=== PATIENT | male | born 1990 | race Caucasian/White ===

== ENCOUNTER 2017-05-29 06:31 | Emergency (ER) | payer OTHER ==
[2017-05-29 06:44] VITALS: BP 117/68
[2017-05-29 07:01] LABS: Hematocrit 39.3 % (35.5-45.6); Hemoglobin 13.5 gm/dl (11.8-15.2); Mean Corpuscular HGB Conc 34 % (32-34); Mean Corpuscular Hemoglobin 30 pg (28-32); Mean Corpuscular Volume 87 fl (84-94); Platelet Count 238 K/mm3 (140-440); Red Blood Count 4.51 M/mm3 (3.65-5.03); Red Cell Distribution Width 13.7 % (13.2-15.2); White Blood Count 6.2 K/mm3 (4.5-11.0)
[2017-05-29 07:11] LABS: Anion Gap 18 mmol/L; Blood Urea Nitrogen 12 mg/dL (9-20); Calcium 9.1 mg/dL (8.4-10.2); Carbon Dioxide 27 mmol/L (22-30); Glucose 90 mg/dL (75-100); Sodium 142 mmol/L (137-145)
[2017-05-29 07:25] LABS: Bilirubin,Urine NEG (Negative); Blood,Urine NEG (Negative); Ketones,Urine NEG (Negative); Leukocyte Esterase,Urine NEG (Negative); Mucus,Urine FEW /HPF; Nitrite,Urine NEG (Negative); Protein,Urine <15 mg/dL mg/dL (Negative); Urobilinogen,Urine < 2.0 mg/dL (<2.0)
[2017-05-29 07:41] LABS: Basophils % (Manual) 0 % (0.0-1.8); Blastocytes % (Manual) 0 %
[2017-05-29 07:42] LABS: Anisocytosis Few; Diff Status Complete; Hypersegmented Neutrophils Rare; Large Platelets Rare
--- NOTE | 2017-05-29 08:29 | Emergency Department Report ---
ED Male HPI - General Chief complaint: Urogenital-Male Stated complaint: ANAL BUMP/PENILE BURNING SENSATION Time Seen by Provider: 05/29/17 08:16 Source: patient Mode of arrival: Ambulatory Limitations: No Limitations - History of Present Illness Initial comments: Patient is a 27-year-old male presents to ED complaining of burning sensation with urination past week. Patient states symptoms started last Friday somewhat resolved but wanted to have it looked at. Patient denies any penile discharge, lesions, recent intercourse. Patient has assisted days ago he noticed a mass by his rectum. Patient states it lasts days become a bit painful to touch. He states bowel movements are regular. He denies any fever/chills/nausea/ vomiting or any other problems. Quality: burning Consistency: intermittent Worsens with: urination denies: discharge, swelling, rash, blood in urine, fever, nausea/vomiting, incontinence - Related Data Previous Rx's Medication Instructions Recorded Last Taken Type Docusate Sodium [Colace] 100 mg PO BID #30 capsule 05/29/17 Unknown Rx Allergies Allergy/AdvReac Type Severity Reaction Status Date / Time No Known Allergies Allergy Verified 05/29/17 06:39 ED Review of Systems ROS: Stated complaint: ANAL BUMP/PENILE BURNING SENSATION Other details as noted in HPI Constitutional: denies: chills, fever Eyes: denies: eye pain, eye discharge, vision change ENT: denies: ear pain, throat pain Respiratory: denies: cough, shortness of breath, wheezing Cardiovascular: denies: chest pain, palpitations Endocrine: no symptoms reported Gastrointestinal: denies: abdominal pain, nausea, diarrhea Genitourinary: dysuria. denies: urgency, frequency, hematuria, discharge Musculoskeletal: denies: back pain, joint swelling, arthralgia Skin: denies: rash, lesions Neurological: denies: headache, weakness, paresthesias Psychiatric: denies: anxiety, depression Hematological/Lymphatic: denies: easy bleeding, easy bruising ED Past Medical Hx - Past Medical History Previous Medical History?: No - Surgical History Past Surgical History?: Yes Additional Surgical History: Eyes OD x 1 OS x 4 - Social History Smoking Status: Never Smoker Substance Use Type: Alcohol - Medications Home Medications: Home Medications Medication Instructions Recorded Confirmed Last Taken Type Docusate Sodium [Colace] 100 mg PO BID #30 capsule 05/29/17 Unknown Rx ED Physical Exam - General Limitations: No Limitations General appearance: alert, in no apparent distress - Head Head exam: Present: atraumatic, normocephalic - Eye Eye exam: Present: normal appearance - ENT ENT exam: Present: mucous membranes moist - Neck Neck exam: Present: normal inspection, full ROM. Absent: meningismus - Respiratory Respiratory exam: Present: normal lung sounds bilaterally. Absent: respiratory distress, wheezes, rhonchi - Cardiovascular Cardiovascular Exam: Present: regular rate, normal rhythm. Absent: systolic murmur, diastolic murmur, rubs, gallop - GI/Abdominal GI/Abdominal exam: Present: soft, normal bowel sounds - Rectal Rectal exam: Present: deferred, normal inspection, normal rectal tone, hemorrhoids (one leftsided soft,non bleeding). Absent: bloody stool, mass - exam: Present: normal inspection, circumcision. Absent: testicular tenderness, urethral discharge, scrotal swelling External exam: Present: normal external exam. Absent: erythema, swelling, lesions, lacerations, bleeding - Extremities Exam Extremities exam: Present: normal inspection, full ROM - Back Exam Back exam: Present: normal inspection - Neurological Exam Neurological exam: Present: alert, oriented X3 - Psychiatric Psychiatric exam: Present: normal affect, normal mood - Skin Skin exam: Present: warm, dry, intact, normal color. Absent: rash ED Course Vital Signs 05/29/17 06:32 Temperature 97.8 F Pulse Rate 55 L Respiratory 18 Rate Blood Pressure 117/68 [Right] O2 Sat by Pulse 100 Oximetry ED Medical Decision Making - Lab Data Result diagrams: 05/29/17 06:42 05/29/17 06:42 - Medical Decision Making 27-year-old male presents with uncomplicated external hemorrhoid ED course: ABC, BMP, urinalysis is obtained. All results are normal Discussed this findings with the patient. Discussed patient to increase fluids and can add drinking cranberry juice. Discussed the patient to keep appointment with his primary care physician tomorrow for follow-up visit. Vital signs normal AND within normal limits patient is in no acute distress Critical care attestation.: If time is entered above; I have spent that time in minutes in the direct care of this critically ill patient, excluding procedure time. ED Disposition Clinical Impression: External hemorrhoids without complication Disposition: DC-01 TO HOME OR SELFCARE Is pt being admited?: No Does the pt Need Aspirin: No Condition: Stable Instructions: Hemorrhoids (ED), Urinary Tract Infection in Men (ED) Additional Instructions: Keep the appointment which her primary care physician tomorrow Follow instructions as given. Prescriptions: Docusate Sodium [Colace] 100 mg PO BID #30 capsule Referrals: PRIMARY CARE, [Primary Care Provider] - 3-5 Days Forms: Work/School Release Form(ED) Time of Disposition: 09:07
== END 2017-05-29 09:25 | disposition home or self-care (01) ==
LOC: ED 06:31
DX: K64.4 Residual hemorrhoidal skin tags (principal)
CPT/HCPCS: 36415; 80048; 81001; 85007; 85025; 99283

== ENCOUNTER 2017-06-29 06:25 | Emergency (ER) | payer OTHER ==
--- NOTE | 2017-06-29 08:44 | XRay Report ---
FINAL REPORT EXAM: XR ANKLE 3+V RT HISTORY: fall,injury,pain COMPARISONS: None. FINDINGS: Three nonweightbearing views right ankle Mild soft tissue swelling about the ankle. No bone lesion, periosteal reaction, or fracture. No deformity or gross malalignment. IMPRESSION: Mild soft tissue swelling about the right ankle without fracture.
[2017-06-29] MEDS ORDERED: MOTRIN PO ONE (10:20)
--- NOTE | 2017-06-29 10:25 | Emergency Department Report ---
ED Extremity Problem HPI - General Chief complaint: Extremity Injury, Lower Stated complaint: RIGHT ANKLE PAIN Time Seen by Provider: 06/29/17 10:14 Source: patient Mode of arrival: Wheelchair Limitations: No Limitations - History of Present Illness Initial comments: PT states he was drinking and dancing at home last night. PT states he jumped up and landed wrong. PT denies falling. Female camera technician states that pt was "stuck" between couch and then complained of R ankle pain. PT states he stopped drinking around 0200 after he had ankle injury. PT did not take any medication for his ankle. PT states at first he could walk on his ankle but now he can not ambulate or move foot. MD Complaint: joint paint -: Sudden Time: 02:00 Location: left, lower extremity History of Same: No Severity scale (0 -10): 9 Quality: sharp, constant Consistency: constant Improves with: nothing Worsens with: weight bearing, walking, palpation - Related Data Previous Rx's Medication Instructions Recorded Last Taken Type Docusate Sodium [Colace] 100 mg PO BID #30 capsule 05/29/17 Unknown Rx Ibuprofen [Motrin] 600 mg PO Q8H PRN #15 tablet 06/29/17 Unknown Rx traMADol [Ultram] 50 mg PO Q6HR PRN #12 tablet 06/29/17 Unknown Rx Allergies Allergy/AdvReac Type Severity Reaction Status Date / Time No Known Allergies Allergy Verified 05/29/17 06:39 ED Review of Systems ROS: Stated complaint: RIGHT ANKLE PAIN Other details as noted in HPI Comment: All other systems reviewed and negative Cardiovascular: denies: chest pain, syncope Gastrointestinal: denies: abdominal pain Musculoskeletal: other (denies neck pain ). denies: back pain Neurological: abnormal gait. denies: headache, paresthesias ED Past Medical Hx - Past Medical History Previous Medical History?: No - Surgical History Past Surgical History?: Yes Additional Surgical History: Eyes OD x 1 OS x 4 - Social History Smoking Status: Never Smoker Substance Use Type: Alcohol - Medications Home Medications: Home Medications Medication Instructions Recorded Confirmed Last Taken Type Docusate Sodium [Colace] 100 mg PO BID #30 capsule 05/29/17 Unknown Rx Ibuprofen [Motrin] 600 mg PO Q8H PRN #15 tablet 06/29/17 Unknown Rx traMADol [Ultram] 50 mg PO Q6HR PRN #12 tablet 06/29/17 Unknown Rx ED Physical Exam - General Limitations: No Limitations General appearance: alert, in no apparent distress - Head Head exam: Present: atraumatic, normocephalic, normal inspection - Eye Eye exam: Present: normal appearance, PERRL, EOMI. Absent: conjunctival injection - ENT ENT exam: Present: normal exam, mucous membranes moist, normal external ear exam - Neck Neck exam: Present: normal inspection, full ROM. Absent: tenderness, lymphadenopathy - Respiratory Respiratory exam: Present: normal lung sounds bilaterally. Absent: respiratory distress, chest wall tenderness, accessory muscle use - Cardiovascular Cardiovascular Exam: Present: regular rate, normal rhythm, normal heart sounds - GI/Abdominal GI/Abdominal exam: Present: soft. Absent: tenderness, guarding, rebound - Extremities Exam Extremities exam: Present: tenderness. Absent: full ROM - Expanded Upper Extremity Exam Left General: Present: normal inspection Right General: Present: normal inspection - Expanded Lower Extremity Exam Right Knee exam: Present: normal inspection, full ROM. Absent: tenderness Lower Leg exam: Present: normal inspection, full ROM. Absent: tenderness, Jed 's sign (negative Escalera's test ) Ankle exam: Present: tenderness, swelling (laterally ). Absent: normal inspection, full ROM Foot/Toe exam: Present: normal inspection, full ROM. Absent: tenderness, swelling, ecchymosis, deformity Neuro vascular tendon exam: Present: no vascular compromise. Absent: pulse deficit Gait: Positive: unable to bear weight - Back Exam Back exam: Present: normal inspection, full ROM. Absent: tenderness, CVA tenderness (R), CVA tenderness (L), muscle spasm, paraspinal tenderness, vertebral tenderness - Neurological Exam Neurological exam: Present: alert, oriented X3 - Expanded Neurological Exam Expanded Patient oriented to: Present: person, place, time Speech: Present: fluid speech Best Eye Response (Gris): (4) open spontaneously Best Motor Response ([place]): (6) obeys commands Best Verbal Response (Gris): (5) oriented [place] Total: 15 - Psychiatric Psychiatric exam: Present: normal affect, normal mood - Skin Skin exam: Present: warm, dry, intact, normal color ED Course Vital Signs 06/29/17 07:31 Temperature 98.5 F Pulse Rate 83 Respiratory 16 Rate Blood Pressure 117/63 O2 Sat by Pulse 98 Oximetry - Reevaluation(s) Reevaluation #1: 06/29/17 10:27 PT aware of XR report and plan of care. He has no questions at this time. Reevaluation #2: 06/29/17 11:10 Nursing staff applied cheryl wrap and velcro splint. PT NVI. PT states decrease in pain. - Pulse Oximetry Interpretation Digit-Finger Initial Pulse Oximetry Readin Actions Taken: none ED Medical Decision Making - Radiology Data Radiology results: report reviewed XR R ankle - no fx, soft tissue swelling - Differential Diagnosis fracture, strain, contusion Critical Care Time: No Critical care attestation.: If time is entered above; I have spent that time in minutes in the direct care of this critically ill patient, excluding procedure time. ED Disposition Clinical Impression: Right ankle sprain Qualifiers: Encounter type: initial encounter Involved ligament of ankle: unspecified ligament Qualified Code(s): S93.401A - Sprain of unspecified ligament of right ankle, initial encounter Disposition: TO HOME OR SELFCARE Is pt being admited?: No Does the pt Need Aspirin: No Condition: Stable Instructions: Ankle Sprain (ED), Crutch Instructions (ED), Ankle Stirrup Splint (ED), RICE Therapy (ED) Additional Instructions: use crutches when up and active No driving or alcohol if you need to take Ultram for your pain Prescriptions: Ibuprofen [Motrin] 600 mg PO Q8H PRN #15 tablet PRN Reason: Pain traMADol [Ultram] 50 mg PO Q6HR PRN #12 tablet PRN Reason: Pain Referrals: PRIMARY CAREMD [Primary Care Provider] - 3-5 Days PATRIC GUEVARA MD [Staff Physician] - 3-5 Days Forms: Work/School Release Form(ED) Time of Disposition: 10:29
[2017-06-29 11:23] VITALS: BP 132/74
== END 2017-06-29 11:32 | disposition home or self-care (01) ==
LOC: ED 06:25
DX: S93.401A Sprain of unspecified ligament of right ankle, initial encounter (principal); W17.89XA Other fall from one level to another, initial encounter; Y93.89 Activity, other specified; Y92.89 Other specified places as the place of occurrence of the external cause; Y99.8 Other external cause status

== ENCOUNTER 2017-09-26 18:30 | Emergency (ER) | payer OTHER ==
[2017-09-26 18:54] VITALS: BP 120/64
[2017-09-26 19:12] LABS: Eosinophils % (Auto) 2.1 % (0.0-4.3); Hematocrit 38.4 % (35.5-45.6); Mean Corpuscular HGB Conc 34 % (32-34); Mean Corpuscular Hemoglobin 30 pg (28-32); Mean Corpuscular Volume 88 fl (84-94); Platelet Count 254 K/mm3 (140-440); Red Blood Count 4.34 M/mm3 (3.65-5.03); Red Cell Distribution Width 13.9 % (13.2-15.2); White Blood Count 6.2 K/mm3 (4.5-11.0)
[2017-09-26 19:32] LABS: Anion Gap 17 mmol/L; BUN/Creatinine Ratio 20; Blood Urea Nitrogen 16 mg/dL (9-20); Calcium 9.4 mg/dL (8.4-10.2); Carbon Dioxide 25 mmol/L (22-30); Chloride 100.2 mmol/L (98-107); Glucose 92 mg/dL (75-100); Sodium 138 mmol/L (137-145)
== END 2017-09-26 23:00 | disposition left against medical advice (07) ==
LOC: ED 18:30
DX: R07.9 Chest pain, unspecified (principal); Z53.21 Procedure and treatment not carried out due to patient leaving prior to being seen by health care provider
CPT/HCPCS: 36415; 80048; 84484; 85025; 93005; 93010

== ENCOUNTER 2017-09-28 18:58 | Emergency (ER) | payer SELFPAY ==
[2017-09-28 19:46] LABS: Eosinophils % (Auto) 3.6 % (0.0-4.3); Hematocrit 38.1 % (35.5-45.6); Hemoglobin 13.1 gm/dl (11.8-15.2); Mean Corpuscular HGB Conc 34 % (32-34); Mean Corpuscular Hemoglobin 30 pg (28-32); Mean Corpuscular Volume 88 fl (84-94); Platelet Count 259 K/mm3 (140-440); Red Blood Count 4.35 M/mm3 (3.65-5.03); Red Cell Distribution Width 13.5 % (13.2-15.2); White Blood Count 7.5 K/mm3 (4.5-11.0)
[2017-09-28 20:05] LABS: Anion Gap 20 mmol/L; BUN/Creatinine Ratio 14; Blood Urea Nitrogen 13 mg/dL (9-20); Calcium 9.3 mg/dL (8.4-10.2); Carbon Dioxide 23 mmol/L (22-30); Chloride 100.8 mmol/L (98-107); Glucose 200 mg/dL (75-100); Potassium 3.7 mmol/L (3.6-5.0); Sodium 140 mmol/L (137-145)
[2017-09-28 20:24] VITALS: BP 107/61
--- NOTE | 2017-09-28 20:51 | Emergency Department Report ---
HPI - General Chief Complaint: Chest Pain Time Seen by Provider: 09/28/17 19:39 - HPI HPI: This is a 27 year-old male presents to the emergency department with a complaint of a one-week history of some intermittent chest pain, lightheadedness, left arm numbness or paresthesias, palpitations and increased fatigue. 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 Since the iday has been so busy, he has been working about 70 hours per week. He denies any past medical history. He has not taken anything for her symptoms prior to presentation. He went to an urgent care today and had some basic blood work done and was told to come to the emergency department for further evaluation. He denies any tobacco or illicit drug use or abuse. He occasionally will drink a cappuccino but denies any excessive caffeine use. ED Past Medical Hx - Past Medical History Previous Medical History?: No - Surgical History Past Surgical History?: Yes Additional Surgical History: Eyes OD x 1 OS x 4 - Social History Smoking Status: Never Smoker Substance Use Type: Alcohol - Medications Home Medications: Home Medications Medication Instructions Recorded Confirmed Last Taken Type Docusate Sodium [Colace] 100 mg PO BID #30 capsule 05/29/17 Unknown Rx Ibuprofen [Motrin] 600 mg PO Q8H PRN #15 tablet 06/29/17 Unknown Rx traMADol [Ultram] 50 mg PO Q6HR PRN #12 tablet 06/29/17 Unknown Rx ED Review of Systems ROS: Stated complaint: CHEST PAIN Other details as noted in HPI Comment: All other systems reviewed and negative Constitutional: other (fatigue). denies: chills, fever Eyes: denies: eye pain, eye discharge, vision change ENT: denies: ear pain, throat pain Respiratory: denies: cough, shortness of breath, wheezing Cardiovascular: chest pain, palpitations Gastrointestinal: denies: abdominal pain, nausea, diarrhea Genitourinary: denies: urgency, dysuria Musculoskeletal: denies: back pain, joint swelling, arthralgia Skin: denies: rash, lesions Neurological: numbness, paresthesias. denies: headache Physical Exam - Physical Exam Vital Signs: Vital Signs 09/28/17 09/28/17 09/28/17 19:11 19:55 20:24 Temperature 98.3 F 98 F Pulse Rate 64 61 66 Respiratory 17 18 Rate Blood Pressure 116/69 Blood Pressure 114/62 107/61 [Left] O2 Sat by Pulse 100 100 Oximetry Physical Exam: GENERAL: The patient is well-developed well-nourished. HENT: Normocephalic. Atraumatic. Patient has moist mucous membranes. EYES: Extraocular motions are intact. Pupils equal reactive to light bilaterally. No nystagmus. NECK: Supple. Trachea is midline. CHEST/LUNGS: Clear to auscultation. There is no respiratory distress noted. HEART/CARDIOVASCULAR: Regular. There is no tachycardia. There is no murmur. ABDOMEN: Abdomen is soft, nontender. Patient has normal bowel sounds. There is no abdominal distention. SKIN: Skin is warm and dry. NEURO: The patient is awake, alert, and oriented. The patient is cooperative. The patient has no focal neurologic deficits. The patient has normal speech and gait. Cranial nerves II-12 grossly intact. No pronator drift. No dysmetria. MUSCULOSKELETAL: There is no tenderness or deformity. There is no limitation range of motion. There is no evidence of acute injury. Muscle strength 5 out of 5 upper and lower extremity is bilateral. ED Course Vital Signs 09/28/17 09/28/17 09/28/17 19:11 19:55 20:24 Temperature 98.3 F 98 F Pulse Rate 64 61 66 Respiratory 17 18 Rate Blood Pressure 116/69 Blood Pressure 114/62 107/61 [Left] O2 Sat by Pulse 100 100 Oximetry ED Medical Decision Making - Lab Data Result diagrams: 09/28/17 19:25 09/28/17 19:25 - EKG Data -: EKG Interpreted by Me EKG shows normal: sinus rhythm, axis, intervals, QRS complexes, ST-T waves Rate: normal - EKG Data When compared to previous EKG there are: previous EKG unavailable Interpretation: normal EKG - Radiology Data Radiology results: image reviewed interpreted by me: Chest x-ray does not show any acute process. There are no pleural effusions, obvious pneumonia and there is no pneumothorax. - Medical Decision Making 27-year-old male presents with some intermittent chest pain, left arm paresthesias, some lightheadedness and increased fatigue. I believe most of this is related to the patient's job and increased recent hours. He does not have any focal, motor or sensory deficits and his cranial nerves are intact. I think the left arm paresthesias could be related to his heavy satchel that he wears over the left shoulder and across his body and this also could be some other reason for his chest discomfort. On physical exam he does not appear to have any signs of any weakness or any numbness. Chest x-ray did not show any acute process. EKG is normal without ST elevation [place], ischemia or dysrhythmia. Labs are unremarkable including negative troponin 2 and normal thyroid function. No other joint or maladies. He had some elevated blood sugar level of 200 but his hemoglobin A1c was only at 5.1. I discussed this with him and he understands he needs to get a true fasting blood sugar test done at his PCP office. Vital signs stable throughout his ED course. He appears safe for discharge home. He is low on the Wells score criteria and low MARY score. He was given multiple referrals for primary care and a cardiology referral. He will return to the ER with any worsening of symptoms or any acute distress. - Differential Diagnosis costochondritis, [place], orthostatic hypotension, vasovagal Critical Care Time: No Critical care attestation.: If time is entered above; I have spent that time in minutes in the direct care of this critically ill patient, excluding procedure time. ED Disposition Clinical Impression: Intermittent chest pain, Paresthesia, Lightheaded Fatigue Qualifiers: Fatigue type: unspecified Qualified Code(s): R53.83 - Other fatigue Disposition: DC-01 TO HOME OR SELFCARE Is pt being admited?: No Condition: Stable Instructions: Chest Pain (ED), Paresthesia (ED), Lightheadedness (ED), Fatigue (ED) Additional Instructions: Please follow up with a primary care physician in the next few days. Return to the emergency department with any worsening of your symptoms or any acute distress. I have given him a referral for a local conveyor console operator, Dr. Naranjo, occasional follow -up regarding your palpitations and intermittent chest pains. Referrals: MELANIE BERNAL MD [Primary Care Provider] - 3-5 Days NEGRO VELAZQUEZ JR, MD [Staff Physician] - 3-5 Days [facility] [Outside] - 3-5 Days BEATRICE NARANJO MD [Staff Physician] - 3-5 Days Forms: Work/School Release Form(ED) Time of Disposition: 23:16
--- NOTE | 2017-09-28 22:10 | XRay Report ---
FINAL REPORT EXAM: XR CHEST ROUTINE 2V HISTORY: CP TECHNIQUE: Two views of the chest Comparison: None FINDINGS: Normal heart size. Lungs are clear and well expanded without focal infiltrate or consolidation. There are no effusions. IMPRESSION: No acute cardiopulmonary disease.
== END 2017-09-28 23:44 | disposition home or self-care (01) ==
LOC: ED 18:58
DX: R07.89 Other chest pain (principal); R42 Dizziness and giddiness; R53.83 Other fatigue; R20.0 Anesthesia of skin
CPT/HCPCS: 36415; 71020; 80048; 83036; 84443; 84484; 85025; 93005; 93010

== ENCOUNTER 2019-06-21 08:42 | Emergency (ER) | payer OTHER ==
[2019-06-21 10:18] VITALS: BP 120/90
[2019-06-21] MEDS ORDERED: FLEXERIL PO ONE (12:04)
[2019-06-21] MEDS ORDERED: ULTRAM PO ONE (12:04)
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
--- NOTE | 2019-06-21 13:47 | XRay Report ---
CHEST 1 VIEW INDICATION: chest pain. COMPARISON: None. FINDINGS: Support devices: None. Heart: Normal. Lungs/Pleura: No acute pulmonary or pleural findings. IMPRESSION: 1. No acute findings. CERVICAL SPINE 4 VIEWS THORACIC SPINE 3 VIEWS INDICATION: Neck and back pain. COMPARISON: No relevant prior imaging study available. FINDINGS: Cervical spine: No acute fracture or subluxation is seen. There is no prevertebral soft tissue swelli ng. No significant degenerative changes. Thoracic spine: No fracture is seen. Alignment is normal. No significant degenerative changes. IMPRESSION: 1. No acute findings. Signer Name: Chago Quinonez MD Signed: 06/21/2019 1:43 PM Workstation Name: [id number]
== END 2019-06-21 14:22 | disposition home or self-care (01) ==
LOC: ED 08:42
DX: S16.1XXA Strain of muscle, fascia and tendon at neck level, initial encounter (principal); S29.012A Strain of muscle and tendon of back wall of thorax, initial encounter; K21.9 Gastro-esophageal reflux disease without esophagitis; F32.9 Major depressive disorder, single episode, unspecified; Z79.899 Other long term (current) drug therapy; V89.2XXA Person injured in unspecified motor-vehicle accident, traffic, initial encounter; Y93.89 Activity, other specified; Y92.488 Other paved roadways as the place of occurrence of the external cause; Y99.8 Other external cause status
CPT/HCPCS: 71045; 72040; 72070; 93005; 93010; 99284